=== PATIENT | female | born 1985 | race Caucasian/White ===

== ENCOUNTER 2017-08-31 13:06 | Inpatient (IN) | END 2017-09-07 14:10 | disposition home or self-care (01) | DRG 776 ==

== ENCOUNTER 2017-09-17 12:51 | Inpatient (IN) | END 2017-09-20 14:38 | disposition home or self-care (01) | DRG 291 ==

== ENCOUNTER 2018-09-06 04:50 | Inpatient (IN) | payer MEDICAID ==
[~2018-09-06] VITALS: Ht 149.9 cm; Wt 82.9 kg
[2018-09-06] VITALS (19 sets, daily range): BP systolic 132–195; BP diastolic 89–128; PULSE 65–93; RESP 15–23; Ht 149.9 cm; Wt 82.9 kg
[~2018-09-06 04:50] MED LIST: CITA20TA11 PO; FLUO20CA22 PO; LAS20 PO; LEVA15HF6 INH; LEVO750T25 PO; VALS160T20 PO
[2018-09-06] MEDS: LACTATED RINGER'S 1,000 ML IV SCH ×2 (05:16→17:38)
[2018-09-06] MEDS ORDERED: MAGNESIUM SULFATE 4 GM/100 ML 100 ML IV ONE (05:30)
[2018-09-06] MEDS ORDERED: MAGNESIUM SULFATE 4 GM/100 ML 100 ML ONE (05:34)
[2018-09-06] MEDS ORDERED: LABETALOL HCL 20MG INJ ONE (05:35)
[2018-09-06] MEDS ORDERED: LABETALOL HCL 20MG INJ IV ONE (06:00)
[2018-09-06] MEDS: MAGNESIUM SULFATE 20 GM/500 ML 500 ML IV SCH ×2 (06:05→17:46)
[2018-09-06] MEDS ORDERED: CA GLUCONATE (GM) 10% 10ML INJ ONE (06:19)
[2018-09-06] MEDS ORDERED: CALCIUM GLUCONATE 10% 1 GM in DEXTROSE 5% 100 ML IVPB ONE (06:30)
--- NOTE | 2018-09-06 08:02 | EN ---
Date/Time of Note Date/Time of Note DATE: 09/06/18 TIME: 07:51 Event Note Medicine Medicine Event Note Rapid response note This is a 32-year-old female who is about 29 weeks with a history of hypertension, pulmonary edema, obesity, methamphetamine abuse and demise thought to be secondary to methamphetamine. Rapid response was called for altered mentation and less responsiveness. She was admitted under OB service an hour prior to rapid response was called. According to the nurse, when patient was admitted, she had a flat affect but she was awake and alert. Her systolic blood pressure was in the 170s and patient was given IV labetalol. Systolic blood pressure dropped to around 110. Heart rate dropped from 70 to 40. On my examination, patient was very lethargic, but arousable. She knew that she was in the hospital and she stated her name. She required noxious stimuli to keep her awake. Patient was transferred to ICU. Given her history of substance abuse, she was given Narcan without improvement in her symptoms. Patient was admitted here in September 2017 under our hospitalist service for Shortness of breath and demise. Patient had a spontaneous likely due to methamphetamine use approximately 2 weeks prior last hospitalization. At that time she developed pulmonary edema. 2D echo showed preserved EF. I did ask the patient today if she has been using any illicit drugs, she said no also she nodded her head to indicate that she has not been using Physical exam General: Obese female lying in bed. Appears lethargic. Eyes closed for the most part HEENT: No obvious deformity, pupils are reactive to light Lungs: Good air movement CV: RRR, no murmurs heard Abdomen: Gravid abdomen Neurologic: Patient is oriented to her name and also know where she is, however lethargic and requires constant stimulation to keep her awake PLAN -Continue ICU monitoring -Follow-up MRI of the brain to rule out CVA, then have the patient be evaluated by the telemetry neurologist -Patient status post Narcan without improvement -Follow-up urine toxicology screen HECTOR FUENTES MD Sep 06, 2018 08:02
[2018-09-06] MEDS: BETAMET NA PHOS/AC(6 MG/ML) 2 ML INJ SYG IM SCH (08:32)
[2018-09-06] MEDS ORDERED: LABETALOL 100 MG TAB PO SCH (09:00)
--- NOTE | 2018-09-06 09:20 | CONS ---
Assessment/Plan Assessment/Plan Assessment/Plan (Daily) 32 yo woman with history of meth use, HTN, depression, presents at 29 weeks with acute abdominal pain. #Abdominal pain - Pain has currently resolved on my exam. Differential: - Cholecystitis or cholestasis of : AST mildly elevated to 98. Will check abdominal US. - Nephrolithiasis: Will check renal US for hydro - Pyelonephritis: UA with bacteria and leuk esterase. Will check urine culture. Abdominal US as above. Currently not septic, will hold off on empiric antibiotics. - Early labor: Patient says this does not feel like contractions. Workup per OB. #Hypertension - Previously on valsartan. I agree with patient's decision to stop this; in addition to being questionable in there are reports of batches contaminated with carcinogens. - Started labetalol 100 BID; uptitrate as needed. #Depression - Previously on citalopram and fluoxetine, she stopped these when she became . - Now says depressive symptoms are severe and limit function. - Will defer to obstetrics. If mental status, blood pressure and pulse remains stable; anticipate transfer out of ICU later this afternoon or tomorrow morning. Internal medicine consult will continue to follow. Thank you for the consult Dr. Kirk. Consultation Date/Type/Reason Admit Date/Time Sep 06, 2018 at 05:40 Date of Consultation: Sep 06, 2018 Type of Consult Internal Medicine Reason for Consultation Hypertension, abdominal pain. Requesting Provider: ISA KIRK M.D. Date/Time of Note DATE: 09/06/18 TIME: 08:53 Hx of Present Illness Ms. Anni Gasca is a 32 yo woman who presents at 29 weeks with acute onset abdominal pain. She has a history of methamphetamine use, hypertension, depression and obesity. She was hospitalized here at [facility] August and September 2017 with pulmonary edema and severe hypertension from methamphetamine use. Since she discovered her she stopped her citalopram and fluoxetine for depression because she was concerned about its effect on the baby. She also stopped her valsartan for the same reason. Since stopping these meds she reports significant worsening of her depressive symptoms; she sleeps all night and much of the day; she has been crying frequently, she has lost interest in many of her previous activities. Thursday (day before admission) around 4 pm she developed gradual progressive acute R back/flank pain radiating to anterior lower abdomen, burning in quality. Associated with nausea and anorexia, no vomiting. Not associated with diarrhea or constipation. No dysuria, hematuria, or urinary frequency. Does not feel like contractions from her prior . Over the next few hours pain gradually became too much to bear; so she presented to the hospital. She denies any shortness of breath, cough, chest pain/pressure/palpitations. In triage; she did not get any pain meds but she was found to be lethargic and minimally responsive; as well as hypertensive and bradycardic. See rapid response note for full details. She was admitted to the intensive care unit. 12 point review of systems done, negative except per HPI. Past Medical History Hypertension Depression Obesity Home Meds Active Scripts Levalbuterol* (Xopenex* HFA) 15 Gm Inha, 2 PUFFS INH Q4H PRN for WHEEZING AND SOB, #1 INHALER 2 Refills Prov:DARIUS MONET S. 09/20/17 Valsartan* (Diovan*) 160 Mg Tablet, 160 MG PO BID, #60 TAB 3 Refills Prov:DARIUS MONET S. 09/20/17 Levofloxacin* (Levaquin*) 750 Mg Tablet, 750 MG PO DAILY for 7 Days, TAB Prov:DARIUS MONET S. 09/20/17 Furosemide (Lasix) 20 Mg Tab, 20 MG PO DAILY@06 for 15 Days, #15 TAB Prov:DARIUS MONET S. 09/20/17 Citalopram Hydrobromide* (Celexa*) 20 Mg Tablet, 20 MG PO DAILY, #30 TAB 2 Refills Prov:DARIUS MONET S. 09/20/17 Fluoxetine Hcl* (Fluoxetine Hcl*) 20 Mg Capsule, 20 MG PO DAILY for 60 Days, #60 CAP 2 Refills Prov:DARIUS MONET S. 09/20/17 Medications Current Medications Lactated Ringer's 1,000 ml @ 125 mls/hr Q8H IV Last administered on 09/06/18at 05:16; Admin Dose 125 MLS/HR; Start 09/06/18 at 05:23 Magnesium Sulfate 500 ml @ 50 mls/hr Q10H IV Last administered on 09/06/18at 06:05; Admin Dose 50 MLS/HR; Start 09/06/18 at 05:23 Betamethasone Acet/Betameth SodPhos (Celestone Soluspan) 12 mg Q24H IM ; Start 09/06/18 at 05:30; Stop 09/07/18 at 05:31 Allergies: Coded Allergies: No Known Allergy (Unverified , 09/06/18) Past Surgical History Past Surgical Hx: no surgical history Social History Alcohol Use: none Smoking Status: Never smoker Drug Use: other (previously used methamphetamine, sober x1 year. ) Exam/Review of Systems Exam Vitals Vital Signs Date Temp Pulse Resp B/P (MAP) Pulse Ox O2 O2 Flow FiO2 Time Delivery Rate 09/06/18 97.6 71 19 144/96 Non 15.0 06:45 (112) Rebreather Exam Gen: Obese woman supine in gurney; awake and alert, no distress Neuro: Alert and oriented x3. Answering all questions appropriately. Moving all extremities spontaneously with good strength. Sensation to light touch intact throughout. Eyes: PERRL, no icterus HEENT: Moist mucous membranes, clear oropharynx Neck: Supple, no masses Card: Regular rate and rhythm, no murmurs Pulm: Clear to auscultation bilaterally Abd: Soft, nontender, nondistended; hypoactive bowel sounds, negative Alfaro's. Ext: No cyanosis/clubbing/edema Skin: cool, dry. Results Result Diagram: 09/06/18 0613 09/06/18 0613 Results 24hrs Laboratory Tests Test 09/06/18 05:45 09/06/18 06:13 09/06/18 06:17 09/06/18 08:22 Urine Color YELLOW Urine Clarity SLIGHTLY CLOUDY A Urine pH 6.0 Urine Specific 1.019 [place] Urine Ketones NEGATIVE Urine Nitrite NEGATIVE Urine Bilirubin NEGATIVE Urine NEGATIVE Urobilinogen Urine Leukocyte TRACE A Esterase Urine Microscopic 3 RBC Urine Microscopic 5 WBC Urine Squamous FEW Epithelial Cells Urine Bacteria FEW A Urine Mucus FEW A Urine Hemoglobin 1+ H Urine Glucose NEGATIVE Urine Total 3+ H Protein White Blood Count 12.2 #H Red Blood Count 4.24 Hemoglobin 13.2 Hematocrit 38.3 Mean Corpuscular 90.3 Volume Mean Corpuscular 31.1 Hemoglobin Mean Corpuscular 34.5 Hemoglobin Concen t Red Cell 12.4 Distribution Width Platelet Count 169 # Mean Platelet 10.7 H Volume Immature 0.700 H Granulocytes % Neutrophils % 75.7 Lymphocytes % 13.3 L Monocytes % 7.9 Eosinophils % 2.0 Basophils % 0.4 Nucleated Red 0.0 Blood Cells % Immature 0.080 H Granulocytes # Neutrophils # 9.3 H Lymphocytes # 1.6 Monocytes # 1.0 H Eosinophils # 0.3 Basophils # 0.1 Nucleated Red 0.0 Blood Cells # Prothrombin Time 11.7 L Prothrombin Time 0.9 Ratio INR International 0.85 Normalized Ratio Activated 26.4 Partial Thrombopl ast Time Fibrinogen 477.0 #H Sodium Level 136 Potassium Level 3.7 Chloride Level 105 Carbon Dioxide 24 Level Anion Gap 7 Blood Urea 14 Nitrogen Creatinine 0.60 Est Glomerular > 60 Filtrat Rate mL/min Glucose Level 81 Uric Acid 6.8 Calcium Level 9.6 Total Bilirubin 0.3 Direct Bilirubin 0.00 Indirect 0.3 Bilirubin Aspartate Amino 98 H Transf (AST/SGOT) Alanine 55 Aminotransferase (ALT/SGPT) Alkaline 100 Phosphatase Total Protein 6.3 Albumin 3.1 L Globulin 3.20 Albumin/Globulin 0.96 Ratio Hepatitis B NEGATIVE Surface Antigen Bedside Glucose 99 93 Medications Medication Current Medications Lactated Ringer's 1,000 ml @ 125 mls/hr Q8H IV Last administered on 09/06/18at 05:16; Admin Dose 125 MLS/HR; Start 09/06/18 at 05:23 Magnesium Sulfate 500 ml @ 50 mls/hr Q10H IV Last administered on 09/06/18at 06:05; Admin Dose 50 MLS/HR; Start 09/06/18 at 05:23 Betamethasone Acet/Betameth SodPhos (Celestone Soluspan) 12 mg Q24H IM ; Start 09/06/18 at 05:30; Stop 09/07/18 at 05:31 JANINA MALIK MD Sep 06, 2018 09:04
[2018-09-06] MEDS ORDERED: IBUPROFEN 200 MG TAB PO ONE (12:00)
--- NOTE | 2018-09-06 14:47 | HP ---
DATE OF ADMISSION: 09/06/2018 CHIEF COMPLAINT: Abdominal pain. HISTORY OF PRESENT ILLNESS: A 32-year-old female 4, para 3, living 2, last menstrual period 02/11/2018, presented to labor and delivery with complaint of right upper quadrant abdominal pain. T he patient states that for this she had only 1 visit about 2 months prior to admis gm. The patient has not had any obstetrical ultrasound for this prior to admission. PAST MEDICAL HISTORY: Major depression, history of amphetamine use. Obstetric history significant f or preeclampsia with severe features in the prior . The patient had intrauterine kenroy se at 28 weeks last . ALLERGIES: No known allergies. FAMILY HISTORY: Gastric cancer. PHYSICAL EXAMINATION: VITAL SIGNS: At the time of admission, the patient had blood pressure of 190/120. Rest of vital sig ns stable. HEAD, NECK AND CHEST: Within normal limits. ABDOMEN: Soft, nontender and gravid. EXTREMITIES: Reveals edema in the lower extremities. NEUROLOGIC: Within normal limits. Workup included an obstetrical ultrasound which revealed an intrauterine of 22 weeks and 6 days with breech presentation. The estimated weight 502 grams. Laboratory revealed platelets of 169, AST 98, ALT 55, creatinine 0.60, uric acid 6.8, urinalysis 3+ protein, urine toxicology posit amparo for amphetamines. IMPRESSION: at 22 weeks and 6 days by ultrasound, no care so far, preeclampsia wi th severe features. HOSPITAL COURSE: Patient was admitted and given intravenous magnesium sulfate for seizure prophylaxi s. The patient's blood pressure is still in severe range. The patient was given a dose of intraveno us labetalol. Subsequently the patient had a change in level of consciousness. The rapid response t eam was called. The patient was evaluated and transferred to intensive care unit. The patient's blo od pressure improved with the current blood pressure 140s/90s. Perinatology consultation request praveen t the patient is given intramuscular betamethasone for lung maturity. Will continue to monitor blood pressure closely and control the blood pressure while in the intensive care unit. Patient had further workup with an echocardiogram which was normal and an MRI of the brain which was negative. Continue to monitor in intensive care unit until the patient stabilized. Dictated By: FREDDIE HUFFMAN/MICK Conf#: [id number] [facility]#: [id number]
[2018-09-06] MEDS ORDERED: PENDING SANTYL ORDER FOR WOUND CARE XX PRN (15:30)
--- NOTE | 2018-09-06 15:32 | CONS ---
DATE OF ADMISSION: 09/06/2018 DATE OF CONSULTATION: 09/06/2018 TYPE OF CONSULTATION: Perinatology. HISTORY OF PRESENT ILLNESS: The patient was admitted early this morning secondary to abdominal pain. Her OB history is significant for prior intrauterine demise at 28 weeks secondary to elevated blood pressure. She has had preeclampsia with all of her pregnancies. The first 2 are alive and th ird one was IUFD and she is currently at 22 weeks and 3 or 4 days. Her blood pressures have been sev erely elevated. She was given a dose of IV labetalol. After that, her blood pressure dropped to james ost normal level; however the patient did not tolerate that and the code was called on her. At the t rafael that I saw her, blood pressures is 178/112. She received oral dose of labetalol at 11:00 essenti allhadley about 20 minutes prior to my visit. Her abdominal pain has resolved; however, she does have brett e headache. PAST MEDICAL HISTORY: Significant for severe depression. She was on Prozac which she discontinued a fter she found out she is . 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 PHYSICAL EXAMINATION: VITAL SIGNS: Blood pressure as above. ABDOMEN: There is no abdominal tenderness. LUNGS: Clear. EXTREMITIES: There is no bilateral lower or upper extremity edema. PELVIC: There is a heart tone. No contractions that she does feel. LABORATORY RESULTS: Her AST is slightly elevated, otherwise are normal. DIAGNOSTIC DATA: Estimated weight on ultrasound is 502 grams. IMPRESSION: Intrauterine at 22 weeks and 3 days with severe preeclampsia given severe rang e blood pressure and 3+ protein in the urine on magnesium sulfate. She received the first dose of la betalol about 20 minutes prior to my visit. In terms of the urine output, she has not had any urine output since 7:00 essentially for 4 hours. However prior to that, she had normal urine output and de pression. She does not have any doctor. She self-discontinued the Prozac since the . She states the reason that she has had very infrequent care is because of her depression. RECOMMENDATIONS: Continue with the magnesium sulfate until at least 24 hours after the second dose o f betamethasone, betamethasone per protocol. About an hour after I spoke to the patient, Dr. Navarrete contacted me that her blood pressure was decreased to 140 over 80s; therefore, it was decided to freddy p the labetalol at 200 mg every 6 hours. NICU consult. Delivery is only recommended if she has severe blood pressures not controlled with blo od pressure medications or she has neurologic, GI or pulmonary symptoms or thrombocytopenia less than 100,000 of platelet. I do recommend Gurrola in order to assess her urine output and ins and outs are very, very clearly as s he had pulmonary edema with her last secondary to preeclampsia. Dictated By: ADONAY HOLDER MD ST/NTS Conf#: [id number] DID#: [id number] CC: FREDDIE NAVARRETE MD;*EndCC*
[2018-09-06] MEDS: LABETALOL 100 MG TAB PO SCH (17:47)
[2018-09-07] VITALS (13 sets, daily range): BP systolic 99–160; BP diastolic 62–109; PULSE 63–88; RESP 13–22
[2018-09-07] MEDS: LABETALOL 100 MG TAB PO SCH ×5 (00:57→23:53)
[2018-09-07] MEDS: MAGNESIUM SULFATE 20 GM/500 ML 500 ML IV SCH ×2 (01:23→03:41)
[2018-09-07] MEDS: BETAMET NA PHOS/AC(6 MG/ML) 2 ML INJ SYG IM SCH (05:13)
--- NOTE | 2018-09-07 09:22 | CONS ---
Assessment/Plan Assessment/Plan Assessment/Plan (Daily) 32 yo woman with history of meth use, HTN, depression, presents at 29 weeks with acute abdominal pain. #Positive urine amphetamines screen - Patient does have history of methamphetamine abuse but denies using any drugs during this . - Note that the urine amphetamines screen is notoriously nonspecific and many common medications can cause false positive results. - The patient reports using Nyquil recently which contains phenylephrine, which is well-known to cause a positive amphetamine screen (1) #Abdominal pain - Pain has now resolved. - US negative for biliary tree or kidney pathology - May have been related to contractions. #Hypertension - Previously on valsartan. I agree with patient's decision to stop this; in addition to being questionable in there are reports of batches contaminated with carcinogens. - I agree with current regimen of labetalol and hydralazine. #Depression - Previously on citalopram and fluoxetine, she stopped these when she became . - Now says depressive symptoms are severe and limit function. - Will defer to obstetrics. Patient is medically stable to be transferred to labor and delivery floor. 1. One Fabius False-Positive Amphetamine Specimens Characterized by Liquid Chromatography [id number] Mass Spectrometry. Mariana Kay, Tiffany Adams, Camilla Strong, Yane Palacios, Lety Mckeon, and Sarika Chaudhry. J Anal Toxicol. 2016 May; 40(1): 3746. Consultation Date/Type/Reason Admit Date/Time Sep 06, 2018 at 05:40 Initial Consult Date 09/06/18 Type of Consult Internal Medicine Reason for Consultation HTN Requesting Provider: ISA KIRK M.D. Date/Time of Note DATE: 09/07/18 TIME: 09:05 24 HR Interval Summary Free Text/Dictation Overnight, blood pressure well controlled on labetalol q6h PO. Abdominal pain has completely resolved. Patient feeling well, tolerating regular diet. Exam/Review of Systems Exam Vitals Vital Signs Date Temp Pulse Resp B/P (MAP) Pulse Ox O2 O2 Flow FiO2 Time Delivery Rate 09/07/18 77 08:00 09/07/18 2.0 06:41 09/07/18 14 108/88 94 Room Air 06:00 (95) 09/07/18 98.5 05:00 Intake and Output 4/29/19 4/29/19 4/30/19 1515:00 23:00 07:00 IntakeIntake Total 965 ml 1015 ml 350 ml OutputOutput Total 675 ml 1125 ml 450 ml BalanceBalance 290 ml -110 ml -100 ml Exam Gen: Obese woman supine in gurney; awake and alert, no distress Neuro: Alert and oriented x3. Answering all questions appropriately. Moving all extremities spontaneously with good strength. Sensation to light touch intact throughout. Eyes: PERRL, no icterus HEENT: Moist mucous membranes, clear oropharynx Neck: Supple, no masses Card: Regular rate and rhythm, no murmurs Pulm: Clear to auscultation bilaterally Abd: Soft, nontender, nondistended; hypoactive bowel sounds, negative Alfaro's. Ext: No cyanosis/clubbing/edema Skin: cool, dry. Results Result Diagram: 09/07/18 0510 09/07/18 0510 Results 24hrs Laboratory Tests Test 09/06/18 11:56 09/06/18 14:05 09/06/18 17:51 09/07/18 00:48 Magnesium Level 5.0 #H 5.6 *H 6.4 *H White Blood Count 10.8 Red Blood Count 4.33 Hemoglobin 13.3 Hematocrit 38.9 Mean Corpuscular 89.8 Volume Mean Corpuscular 30.7 Hemoglobin Mean Corpuscular 34.2 Hemoglobin Concent Red Cell 12.6 Distribution Width Platelet Count 161 Mean Platelet Volume 10.8 H Immature 1.400 H Granulocytes % Neutrophils % 92.2 H Lymphocytes % 5.4 L Monocytes % 0.7 Eosinophils % 0.1 Basophils % 0.2 Nucleated Red Blood 0.0 Cells % Immature 0.150 H Granulocytes # Neutrophils # 10.0 H Lymphocytes # 0.6 L Monocytes # 0.1 L Eosinophils # 0.0 Basophils # 0.0 Nucleated Red Blood 0.0 Cells # Sodium Level 131 L Potassium Level 4.2 Chloride Level 102 Carbon Dioxide Level 19 L Anion Gap 10 Blood Urea Nitrogen 11 Creatinine 0.60 Est Glomerular > 60 Filtrat Rate mL/min Glucose Level 233 #H Calcium Level 8.8 Total Bilirubin 0.2 Direct Bilirubin 0.00 Indirect Bilirubin 0.2 Aspartate Amino 68 H Transf (AST/SGOT) Alanine 42 Aminotransferase (AL T/SGPT) Alkaline Phosphatase 99 Total Protein 6.1 Albumin 3.0 L Globulin 3.10 Albumin/Globulin 0.96 Ratio Test 09/07/18 05:10 White Blood Count 15.5 #H Red Blood Count 3.72 L Hemoglobin 11.8 L Hematocrit 33.9 L Mean Corpuscular 91.1 Volume Mean Corpuscular 31.7 Hemoglobin Mean Corpuscular 34.8 Hemoglobin Concent Red Cell 12.4 Distribution Width Platelet Count 173 Mean Platelet Volume 11.0 H Immature 1.300 H Granulocytes % Neutrophils % 85.3 H Lymphocytes % 7.9 L Monocytes % 5.3 Eosinophils % 0.0 Basophils % 0.2 Nucleated Red Blood 0.0 Cells % Immature 0.200 H Granulocytes # Neutrophils # 13.3 H Lymphocytes # 1.2 Monocytes # 0.8 Eosinophils # 0.0 Basophils # 0.0 Nucleated Red Blood 0.0 Cells # Sodium Level 131 L Potassium Level 4.3 Chloride Level 101 Carbon Dioxide Level 23 Anion Gap 7 Blood Urea Nitrogen 14 Creatinine 0.70 Est Glomerular > 60 Filtrat Rate mL/min Glucose Level 125 # Uric Acid 6.8 Calcium Level 7.6 L Magnesium Level 7.2 *H Total Bilirubin 0.1 L Direct Bilirubin 0.00 Indirect Bilirubin 0.1 Aspartate Amino 33 Transf (AST/SGOT) Alanine 35 Aminotransferase (AL T/SGPT) Alkaline Phosphatase 88 Total Protein 5.1 #L Albumin 2.6 L Globulin 2.50 Albumin/Globulin 1.04 Ratio Medications Medication Current Medications Magnesium Sulfate 500 ml @ 50 mls/hr Q10H IV Last administered on 09/07/18at 03:41; Admin Dose 50 MLS/HR; Start 09/06/18 at 05:23 Hydralazine HCl (Apresoline) 10 mg Q6 PO Last administered on 09/07/18at 05:13; Admin Dose 10 MG; Start 09/06/18 at 12:30 Labetalol HCl (Normodyne) 200 mg Q6 PO Last administered on 09/07/18at 05:13; Admin Dose 200 MG; Start 09/06/18 at 18:00 Miscellaneous Information (Pending Santyl Order For Wound Care) This patient king... PRN PRN XX WOUND CARE; Start 09/06/18 at 15:30 JANINA MALIK MD Sep 07, 2018 09:21
--- NOTE | 2018-09-07 12:27 | QN ---
Documentation Comment Patient has no complaint Afebrile VSS BP systolic in 100's Abdomen soft NT Plt, ALT and AST normal Stable Transfer to antepartum FREDDIE NAVARRETE MD Sep 07, 2018 12:27
--- NOTE | 2018-09-07 17:27 | RADRPT ---
Vent Rate: 73 bpm RR Interval: [address] Interval: 162 msec QRS Duration: 72 msec QT Interval: 426 msec QTC Interval: 469 msec P-R-T [place]: -7 - 45 - 53 degrees Normal sinus rhythm Normal ECG Electronically Signed By: Wagner Parr
--- NOTE | 2018-09-08 00:30 | CONS ---
DATE OF ADMISSION: 09/06/2018 DATE OF CONSULTATION: 09/07/2018 I saw the patient around 1:30 on 09/07/2018. The patient's blood pressures have improved overall. T here are 1 or 2 episodes that the patient has in the one-teens systolic blood pressure; otherwise, th ey are in the moderate range; however, she does not have any headache any more. She is on magnesium sulfate; however, at that time, I was at the bedside. Nurse was trying to get heart tone. Fet al heart tones were in the 107 to 108, which is different than before. Instructions were given to ch juan the patient to the left side and repeat and as the patient is obese, it is best if the ultrasoun d is showing where the heart is in order to obtain a better heart tone I checked on the patient about half an hour later. Heart tones were in the 110s, and I spoke to Dr. Zaragoza. Decision was m robbie to stop the magnesium sulfate and monitor the patient. If the patient's blood pressures remain s table and heart tone is 120 or above, then the patient would be stable enough for transfer to [facility], otherwise, in-house management. Dictated By: ADONAY DAMON/MICK Conf#: [id number] DID#: [id number]
[2018-09-08] MEDS: LABETALOL 100 MG TAB PO SCH ×3 (06:28→17:40)
--- NOTE | 2018-09-08 17:50 | PN ---
Date/Time of Note Date/Time of Note DATE: 09/08/18 TIME: 17:45 OB Subjective Subjective Subjective Patient seen and examined. She states good movement. She denies nausea, vomiting, shortness of breath, chest pain, abdominal pain, uterine contractions, headache, visual changes, vaginal bleeding or LOF. OB Objective Objective Objective Vital Signs Date Temp Pulse Resp B/P (MAP) Pulse Ox O2 O2 Flow FiO2 Time Delivery Rate 09/07/18 76 12:00 09/07/18 18 101/66 91 Room Air 11:00 (78) 09/07/18 98.1 08:00 09/07/18 2.0 06:41 General: Patient appears well, alert and oriented, NAD, appropriate mood and affect ABD: gravid, soft, non-tender. Back: No CVA tenderness (B/L) LE: Mild edema. No clubbing, cyanosis, edema, thigh or calf tenderness bilaterally FHT: 136 bpm Contractions:None OB Assessment/Plan Other plan: 32 year-old G 2 para 1-0-0-1 with preeclampsia with severe features and severe depression at 23 weeks. heart rate is 136 bpm, she has no uterine contraction. Currently she has no symptom of severe features. She is s/p receiving magnesium sulfate for seizure prophylaxis and betamethasone for lung maturity. Due to severe depression, Dr. Zaragoza contacted [facility] [employer] department, [employer] automation engineering manager accepted transfer of care of patient. She transferred in stable condition NANETTE VILLATORO September 08, 2018 17:50
--- NOTE | 2018-09-08 17:51 | DS ---
Date/Time of Note Date/Time of Note DATE: 09/08/18 TIME: 17:50 Obstetrical Discharge Record Final Diagnosis Final Diagnosis: not delivered Other Final Diagnosis 32 year-old G 2 para 1-0-0-1 with preeclampsia with severe features and severe depression at 23 weeks. heart rate is 136 bpm, she has no uterine contraction. Currently she has no symptom of severe features. She is s/p receiving magnesium sulfate for seizure prophylaxis and betamethasone for lung maturity. Due to severe depression, Dr. Zaragoza contacted [facility] [employer] department, [employer] automation tester accepted transfer of care of patient. She transferred in stable condition Condition on Discharge Physical Assessment Voiding: Yes Bowel Movement: Yes Breast: Soft, non-tender Calf Tenderness: No Patient Condition: Stable NANETTE VILLATORO September 08, 2018 17:51
== END 2018-09-08 17:35 | disposition other institution (70) | DRG 832 ==
LOC: OBT 04:50 → L-D 04:50 → OBT 05:40 → ICU 06:31 → L-D 09-07 13:43
PROVIDERS: ADMIT Obstetrics & Gynecology; ATTEND Obstetrics & Gynecology
DX: O14.12 Severe pre-eclampsia, second trimester (principal); O99.322 Drug use complicating pregnancy, second trimester; Z87.59 Personal history of other complications of pregnancy, childbirth and the puerperium; O16.2 Unspecified maternal hypertension, second trimester; F15.10 Other stimulant abuse, uncomplicated; Z3A.22 22 weeks gestation of pregnancy; O99.342 Other mental disorders complicating pregnancy, second trimester; F32.9 Major depressive disorder, single episode, unspecified; O99.212 Obesity complicating pregnancy, second trimester; E66.9 Obesity, unspecified; Z68.36 Body mass index [BMI] 36.0-36.9, adult
CPT/HCPCS: 36415; 70551; 76700; 76815; 76817; 76818; 80053; 80307; 81001; 82962; 83735; 84560; 85025; 85384; 85610; 85730; 86592; 86703; 86762; 86900; 86901; 87081; 87086; 87340; 93005; 96360; G0463; J0610; J0702; J3475; J7120